=== PATIENT | male | born 1945 | race Hispanic/Latino ===

== ENCOUNTER → 2024-07-15 | Day surgery (SDC) | payer MEDICARE, OTHER ==
[2024-07-12 10:45] LABS: BASOPHILS % 0.4 % (0.0-1.0); EOSINOPHILS # (AUTO) 0.2 (0.0-0.4); HEMOGLOBIN 13.2 g/dL (14.0-18.0); LYMPHOCYTES % 18.5 % (18.0-39.1); MEAN CORPUSCULAR HEMOGLOBIN 29.9 pg (28-32); MEAN CORPUSCULAR HGB CONC 33.8 g/dL (31-35); MEAN CORPUSCULAR VOLUME 88.4 fL (81-99); MONOCYTES # (AUTO) 0.4 (0.2-0.8); MONOCYTES % 7.6 % (4.4-11.3); NEUTROPHILS # (AUTO) 3.7 (2.1-6.9); NEUTROPHILS % 70.3 % (38.7-80.0); PLATELET COUNT 190 x10e3/uL (140-360); RED BLOOD COUNT 4.41 x10e6/uL (4.3-5.7); RED CELL DISTRIBUTION WIDTH 13.8 % (11.7-14.4); WHITE BLOOD COUNT 5.25 x10e3/uL (4.8-10.8)
[~2024-07-15] MED LIST: ALFUZOSIN HCL10 MG PO; ALLOPURINOL100 MG PO; ASA325 PO; ASPIR 8181 MG PO; BENZONATATE200 MG PO; FENOFIBRATE160 MG PO; FINASTERIDE5 MG PO; JARDIANCE10 MG PO; LIPITOR10 MG PO; NORCO 7.5-3251 EACH PO; OMEPRAZOLE40 MG PO; PROPOFOL IV EMULSION 10 MG/ML 20 ML VIAL ONE; SIMVASTATIN80 MG PO; TAMSULOSIN HCL0.4 MG PO; TRAZODONE HCL50 MG PO; XARELTO20 MG PO
[2024-07-15] MEDS: LACTATED RINGER'S 1,000 ML ONE (08:05)
[2024-07-15 10:40] VITALS: BP 164/95; PULSE 73; RESP 17; TEMP 97.2; O2SAT 97
== END | disposition home or self-care (01) ==
LOC: OR 06:22
PROVIDERS: ATTEND Internal Medicine Gastroenterology
DX: Z12.11 Encounter for screening for malignant neoplasm of colon (principal); K29.50 Unspecified chronic gastritis without bleeding; K21.9 Gastro-esophageal reflux disease without esophagitis; K64.8 Other hemorrhoids; E11.9 Type 2 diabetes mellitus without complications; Z78.9 Other specified health status; R42 Dizziness and giddiness; R33.9 Retention of urine, unspecified; R31.9 Hematuria, unspecified; Z01.810 Encounter for preprocedural cardiovascular examination; Z01.812 Encounter for preprocedural laboratory examination; Z79.84 Long term (current) use of oral hypoglycemic drugs; Z79.02 Long term (current) use of antithrombotics/antiplatelets; Z79.899 Other long term (current) drug therapy; Z68.28 Body mass index [BMI] 28.0-28.9, adult; Z71.3 Dietary counseling and surveillance; Z85.828 Personal history of other malignant neoplasm of skin
CPT/HCPCS: 43239; G0121; 36415; 45378; 82948; 85025; 88305; 93005